=== PATIENT | female | born 2000 | race Caucasian/White ===

== ENCOUNTER → 2022-04-11 | Outpatient (CLI) | payer BC, OTHER ==
--- NOTE | 2022-04-11 16:04 | Diagnostic Imaging Report ---
INDICATION: Positive TB skin test. FINDINGS: PA chest. The lungs are well-aerated and clear. There are no apical lesions. No cavitary lesion. No hilar adenopathy. The heart is not enlarged. IMPRESSION: Normal PA chest. There are no findings to suggest active TB. Dictated by: Dictated on workstation # [id number]
== END ==
LOC: RAD 11:10
PROVIDERS: ATTEND Nurse Practitioner Family
DX: R76.12 Nonspecific reaction to cell mediated immunity measurement of gamma interferon antigen response without active tuberculosis (principal)
CPT/HCPCS: 71045